=== PATIENT | female | born 1985 ===

== ENCOUNTER 2019-03-04 11:53 | Observation (INO) | payer MEDICAID, OTHER ==
[~2019-03-04] VITALS: Ht 165.1 cm; Wt 83.5 kg
[2019-03-04] MEDS ORDERED: PREN-96 PO (12:32)
[2019-03-04] MEDS ORDERED: TERBUTALINE SULFATE 1 MG/ML 1ML VIAL SC ONE (13:30)
[2019-03-04] MEDS ORDERED: BETAMETHASONE ACET (6MG/ML) 5ML VIAL IM SCH ×2 (13:45→22:00)
== END 2019-03-04 13:10 | disposition home or self-care (01) | DRG 563 ==
LOC: LDRP 11:53
PROVIDERS: ADMIT Obstetrics & Gynecology; ATTEND Obstetrics & Gynecology
DX: O60.03 Preterm labor without delivery, third trimester (principal); F32.9 Major depressive disorder, single episode, unspecified; O40.3XX0 Polyhydramnios, third trimester, not applicable or unspecified; O99.343 Other mental disorders complicating pregnancy, third trimester; Z3A.32 32 weeks gestation of pregnancy
CPT/HCPCS: 59025; 81002; 96372; G0378; J0702; J3105

== ENCOUNTER 2019-03-05 14:15 | Observation (INO) | payer MEDICAID ==
[~2019-03-05] VITALS: Ht 167.6 cm; Wt 86.2 kg
[~2019-03-05 14:15] MED LIST: PREN-96 PO
[2019-03-05] MEDS ORDERED: BETAMETHASONE ACET (6MG/ML) 5ML VIAL IM SCH (15:00)
== END 2019-03-05 16:05 | disposition home or self-care (01) | DRG 563 ==
LOC: LDRP 14:15
PROVIDERS: ADMIT Obstetrics & Gynecology; ATTEND Obstetrics & Gynecology
DX: O60.03 Preterm labor without delivery, third trimester (principal); F32.9 Major depressive disorder, single episode, unspecified; O40.3XX0 Polyhydramnios, third trimester, not applicable or unspecified; O99.343 Other mental disorders complicating pregnancy, third trimester; Z3A.32 32 weeks gestation of pregnancy
CPT/HCPCS: 59025; 81002; 96372; G0378; J0702

== ENCOUNTER 2019-03-08 08:35 | Observation (INO) | payer MEDICAID | END 2019-03-08 10:15 | disposition home or self-care (01) | DRG 566 | LOC: LDRP 08:35 | PROVIDERS: ADMIT Specialist; ATTEND Specialist | DX: O21.2 Late vomiting of pregnancy (principal); O60.03 Preterm labor without delivery, third trimester; O26.893 Other specified pregnancy related conditions, third trimester; R19.7 Diarrhea, unspecified; R51 Headache; Z3A.33 33 weeks gestation of pregnancy | CPT/HCPCS: 59025; 81002; G0378 ==

== ENCOUNTER 2019-03-26 14:55 | Observation (INO) | payer MEDICAID | END 2019-03-26 16:00 | disposition home or self-care (01) | DRG 563 | LOC: LDRP 14:55 | PROVIDERS: ADMIT Obstetrics & Gynecology; ATTEND Obstetrics & Gynecology | DX: O60.03 Preterm labor without delivery, third trimester (principal); F32.9 Major depressive disorder, single episode, unspecified; O99.343 Other mental disorders complicating pregnancy, third trimester; Z3A.35 35 weeks gestation of pregnancy | CPT/HCPCS: 59025; 81002; G0378 ==